=== PATIENT | female | born 1985 | race Caucasian/White ===

== ENCOUNTER 2016-05-16 23:30 | Outpatient (CLI) | payer MEDICAID ==
[~2016-05-16] VITALS: Ht 152.4 cm; Wt 94.4 kg
[2016-05-16 23:42] VITALS: BP 131/63; PULSE 68; RESP 22; Ht 152.4 cm; Wt 94.4 kg
[2016-05-17] MEDS ORDERED: LACTATED RINGER'S 1,000 ML IV* ONE
[2016-05-17] MEDS ORDERED: MEPERIDINE 25 MG INJ IV ONE
--- NOTE | 2016-05-17 00:46 | RADRPT ---
PROCEDURE: Obstetrical ultrasound greater than 14 weeks CLINICAL INDICATION: labor TECHNIQUE: Real time sonographic imaging of the gravid uterus is performed transabdominally and mu ltiple static yarbrough scale and Doppler images are submitted for review as are measurements. The image s are reviewed on the PACS. COMPARISON: No relevant exams are available FINDINGS: There is a single living intrauterine gestation in variable to breech presentation. The heart beat is estimated at 131 bpm. The measurements are as follows: BPD:5.66 cm HC:20.84 cm AC:18.30 cm FL:4.13 cm Estimated gestational age is 23 weeks 2 days. The estimated date of delivery is 09/11/2016. The estimated weight is 574 grams. Placenta is posterior and grade 0. There is no evidence of placenta previa or abruption. The amniotic fluid maximum vertical pocket is estimated at 5.8 cm. RPTAT:HJJR IMPRESSION: 1. Single viable intrauterine gestation estimated at 23 weeks 2 days with the estimated date of deli very 09/11/2016. 2. Posterior grade 0 placenta without placenta previa or abruption. Physician Saroj Date Time Electronically viewed and signed by Physician Saroj on 05/17/2016 00:46 JR/
--- NOTE | 2016-05-17 00:47 | RADRPT ---
PROCEDURE: Obstetrical ultrasound greater than 14 weeks CLINICAL INDICATION: labor. Evaluate cervical length. TECHNIQUE: Real time sonographic imaging of the gravid uterus is performed transabdominally and mu ltiple static yarbrough scale and Doppler images are submitted for review as are measurements. The image s are reviewed on the PACS. COMPARISON: 05/17/2016 FINDINGS: The cervical os is closed with a normal cervical length of 4.9 cm. RPTAT:HJJR IMPRESSION: 1. Single viable intrauterine gestation with the cervical length estimated at 4.9 cm. Physician Saroj Date Time Electronically viewed and signed by Physician Saroj on 05/17/2016 00:47 JR/
[2016-05-17 00:57] LABS: BASOPHILS % 0.3 % (0.0-2.0); EOSINOPHILS # 0.3 10^3/ul (0.0-0.5); EOSINOPHILS % 3.9 % (0.0-7.0); HEMATOCRIT 34.2 % (37.0-47.0); HEMOGLOBIN 11.2 g/dl (12.0-16.0); LYMPHOCYTES # 1.9 10^3/ul (0.8-2.9); LYMPHOCYTES % 24.3 % (15.0-51.0); MEAN CORPUSCULAR HEMOGLOBIN 25.6 pg (29.0-33.0); MEAN CORPUSCULAR HGB CONC 32.8 g/dl (32.0-37.0); MEAN CORPUSCULAR VOLUME 78.3 fl (82.0-101.0); MEAN PLATELET VOLUME 7.6 fl (7.4-10.4); MONOCYTE # 0.5 10^3/ul (0.3-0.9); MONOCYTES % 6.3 % (0.0-11.0); NEUTROPHIL # 5.1 10^3/ul (1.6-7.5); NEUTROPHILS % 65.2 % (39.0-77.0); PLATELET COUNT 276 10^3/UL (140-440); RED BLOOD COUNT 4.37 10^6/ul (4.20-5.40); RED CELL DISTRIBUTION WIDTH 15.8 % (11.5-14.5); UNCORRECTED WBC 7.8 10^3/ul (4.8-10.8); WHITE BLOOD COUNT 7.8 10^3/ul (4.8-10.8)
[2016-05-17 00:59] LABS: CONDITION 1; LH ANALYZER COMMENTS 1
[2016-05-17 01:11] LABS: ADD UMIC YES; URINE BILIRUBIN (Dip) NEGATIVE (NEGATIVE); URINE BLOOD (Dip) 1+ (NEGATIVE); URINE COLOR LT. YELLOW (YELLOW); URINE GLUCOSE (Dip) NEGATIVE (NEGATIVE); URINE KETONES (Dip) NEGATIVE (NEGATIVE); URINE LEUKOCYTE ESTERASE (Dip) TRACE (NEGATIVE); URINE NITRITE (Dip) NEGATIVE (NEGATIVE); URINE TOTAL PROTEIN (Dip) NEGATIVE (NEGATIVE); URINE UROBILINOGEN (Dip) 0.2 E.U./dL (0.1-1.0)
[2016-05-17 01:22] LABS: ALBUMIN 3.2 g/dl (3.3-4.9)
[2016-05-17 01:23] LABS: BACTERIA,URINE MANY; MUCUS,URINE MANY; SQUAMOUS EPITHELIAL CELL,UR MANY; URINE RBCS 0-2 /HPF (0)
[2016-05-17 01:23] LABS: POTASSIUM 3.8 mmol/L (3.5-5.1)
[2016-05-17 01:25] LABS: ALBUMIN/GLOBULIN RATIO 1.03; CREATININE 0.43 mg/dl (0.44-1.00); TOTAL PROTEIN 6.3 g/dl (6.1-8.1)
[2016-05-17 01:26] LABS: CALCIUM 9.2 mg/dl (8.4-10.2)
--- NOTE | 2016-05-17 02:23 | QN ---
Documentation Comment 30 y/o at 22+ weeks with c/o upper abdominal pain. Denies N/V, ROM or vaginal bleeding. Afebrile VSS abdomen soft NT Strip Appropriate for GA Blood work WNL After rest, patient feels better. D/ C home. Patient to follow up in her clinic in AM for further evaluation and urine culture. COLLIN SOLOMON MD May 17, 2016 02:23
--- NOTE | 2016-05-17 02:37 | TRIAGE ---
OB Triage Datetime Report Generated by CPN: 05/17/2016 02:36 Datetime: 05/17/2016 02:11 Monitor Mode: Palpation Resting Tone [place]: Relaxed Datetime: 05/17/2016 02:10 Labor Evaluation Frequency: 0 Monitor Mode: External Duration (sec)2399: 0 Heart Rate FHR Baseline Rate: 145 FHR Baseline Changes: No Baseline Change Variability: Moderate 6-25 bpm Accelerations: 10X10 Datetime: 05/17/2016 02:08 Monitor Mode: External US Datetime: 05/17/2016 01:50 Labor Evaluation Frequency: NONE Monitor Mode: External Duration (sec)2399: NONE Pattern: Normal: <= 5 Contractions in 10 Minutes Heart Rate FHR Baseline Rate: 145 Monitor Mode: External US FHR Baseline Changes: No Baseline Change Variability: Moderate 6-25 bpm Accelerations: 10X10 Decelerations: Variable Category: Category II Comments: APPROPRIATE FOR GA Datetime: 05/17/2016 01:29 Pain Assessment Pain Scale: 2 Pain Location: Abdomen Datetime: 05/17/2016 01:00 Labor Evaluation Frequency: NONE Monitor Mode: External Duration (sec)2399: NONE Pattern: Normal: <= 5 Contractions in 10 Minutes Heart Rate FHR Baseline Rate: 145 Monitor Mode: External US FHR Baseline Changes: No Baseline Change Variability: Minimal - Undetectable to <=5 bpm Accelerations: 10X10 Datetime: 05/17/2016 00:57 Monitor Mode: External US Datetime: 05/17/2016 00:27 Monitor Mode: External US Datetime: 05/17/2016 00:00 Labor Evaluation Frequency: NONE Monitor Mode: External Pattern: Normal: <= 5 Contractions in 10 Minutes Heart Rate FHR Baseline Rate: 150 Monitor Mode: External US FHR Baseline Changes: No Baseline Change Variability: Moderate 6-25 bpm Accelerations: 10X10 Decelerations: Variable Category: Category II Comments: APPROPRIATE FOR GA Datetime: 05/16/2016 23:48 Stage of : OB Triage Datetime: 05/16/2016 23:39 EGA: 22.6 Datetime: 05/16/2016 23:33 Monitor Mode: Palpation Resting Tone [place]: Relaxed Contraction Comments: ABD SOFT WITH PALPATION, PT. HAS TENDERNESS AT EPIGASTRIC REGION RADIATING T O MIDDLE BACK Datetime: 05/16/2016 23:30 Stage of : OB Triage Assessment Type: Triage Time of Arrival: 05/17/2016 23:22 Arrived By: Wheelchair Arrived From: Home Chief Complaint: ABD PAIN STARTING ABOVE UMBILICUS AND RADIATING TO BACK Movement: Present Contractions: Denies/Absent Rupture of Membranes: Denies Vaginal Discharge: Denies Recent Sexual Intercouse: Denies Abdominal Trauma: Not Applicable Patient Complaints: Back Pain; Epigastric Pain Time Provider Notified: 05/16/2016 23:22 Provider Notified: DELSHAD Initial Plan: EFM, CALL OB Maternal Assessment Level of Consciousness: Fully Conscious Headache: Denies Blurred Vision: No Respiratory Effort: Labored; Equal Expansion Nausea/Vomiting: Present RUQ Epigastric Pain: Present Lower Extremities Edema: Bilateral Lower Extremities Degree: 1+ Upper Extremities Edema: None Facial Edema: None Fall Risk Assessment History of Falling: (0) No Secondary Diagnosis: (0) No Ambulatory Aid: (0) Bedrest/Nurse Assist IV Therapy: (0) No Gait: (0) Normal/Bedrest/Immobile Mental Status: (0) Oriented to Own Ability Fall Score: 0 Fall Risk Score Definition: No Risk: No action required Pain Assessment Pain Scale: 10 Pain Presence: Constant Pain Type: Burning; Sharp; Ache Pain Location: Abdomen
== END 2016-05-17 02:20 | disposition home or self-care (01) ==
LOC: OBT 23:30 → L-D 23:31 → OBT 05-17 02:20
PROVIDERS: ATTEND Obstetrics & Gynecology
DX: O26.892 Other specified pregnancy related conditions, second trimester (principal); R10.10 Upper abdominal pain, unspecified; Z3A.22 22 weeks gestation of pregnancy
CPT/HCPCS: 36415; 76815; 76817; 80053; 81001; 81003; 82150; 83690; 85025; 96360; 96361; 96374; J2175; J7120; Z7500; G0463